=== PATIENT | male | born 1935 | race Caucasian/White ===

== ENCOUNTER 2021-05-11 19:00 | Emergency (ER) | payer MEDICARE, BC ==
[~2021-05-11] VITALS: Ht 190.5 cm; Wt 90.7 kg
[~2021-05-11 19:00] MED LIST: CENTRUM SILVER1 EAC1 PO; COQ-10100 MG PO; COREG25 MG PO; COUMADIN2.5 MG PO; GLUCOSAMINE S1000 M2 PO; LISINOPRIL20 MG PO; LO-DOSE ASPIRIN81 MG PO; TRICOR48 MG PO
[2021-05-11 21:09] LABS: BASOPHILS # (AUTO) 0.1 (0.0-0.1); BASOPHILS % 0.6 % (0.0-1.0); EOSINOPHILS # (AUTO) 0.2 (0.0-0.4); HEMATOCRIT 38.5 % (38.2-49.6); HEMOGLOBIN 12.3 g/dL (14.0-18.0); LYMPHOCYTES # (AUTO) 0.7 (1.0-3.2); MEAN CORPUSCULAR HEMOGLOBIN 28.5 pg (28-32); MEAN CORPUSCULAR HGB CONC 31.9 g/dL (31-35); MEAN CORPUSCULAR VOLUME 89.3 fL (81-99); MONOCYTES % 12.2 % (4.4-11.3); NEUTROPHILS # (AUTO) 6.2 (2.1-6.9); PLATELET COUNT 126 x10e3/uL (140-360); RED BLOOD COUNT 4.31 x10e6/uL (4.3-5.7)
[2021-05-11 21:17] LABS: INR 1.73; PROTHROMBIN TIME 21.6 seconds (11.9-14.5)
[2021-05-11 21:18] LABS: PARTIAL THROMBOPLASTIN TIME 39.2 seconds (23.8-35.5)
[2021-05-11 21:26] LABS: ALBUMIN 4.2 g/dL (3.5-5.0); ALBUMIN/GLOBULIN RATIO 1.3 (0.8-2.0); ANION GAP 15.3 mmol/L (8-16); CALCIUM 9.4 mg/dL (8.4-10.2); CREATININE, SERUM 1.56 mg/dL (0.72-1.25); POTASSIUM 4.3 mmol/L (3.5-5.1)
[2021-05-11] MEDS ORDERED: AFRIN15 ML INH (21:59)
[2021-05-11] MEDS ORDERED: SILVER NITRATE SWABS ONE (22:04)
== END 2021-05-11 22:04 | disposition home or self-care (01) ==
LOC: ER 19:15
DX: R04.0 Epistaxis (principal); I10 Essential (primary) hypertension; E78.00 Pure hypercholesterolemia, unspecified; Z79.82 Long term (current) use of aspirin; Z79.01 Long term (current) use of anticoagulants; Z79.899 Other long term (current) drug therapy; Z86.73 Personal history of transient ischemic attack (TIA), and cerebral infarction without residual deficits
CPT/HCPCS: 36415; 80053; 85025; 85610; 85730; 99282

== ENCOUNTER 2021-05-24 23:02 | Emergency (ER) | payer MEDICARE, BC ==
[~2021-05-24] VITALS: Ht 190.5 cm; Wt 90.7 kg
[~2021-05-24 23:02] MED LIST changes: +AFRIN15 ML INH
[2021-05-24] MEDS ORDERED: OXYMETAZOLINE HCL 0.05% NAS 1 SPRAY BTL ONE ×2 (23:15→23:24)
[2021-05-24 23:58] LABS: BASOPHILS % 0.4 % (0.0-1.0); EOSINOPHILS # (AUTO) 0.2 (0.0-0.4); EOSINOPHILS % 2.5 % (0.0-6.0); HEMATOCRIT 40.5 % (38.2-49.6); HEMOGLOBIN 12.8 g/dL (14.0-18.0); LYMPHOCYTES # (AUTO) 0.6 (1.0-3.2); LYMPHOCYTES % 7.6 % (18.0-39.1); MEAN CORPUSCULAR HEMOGLOBIN 28.4 pg (28-32); MEAN CORPUSCULAR HGB CONC 31.6 g/dL (31-35); MEAN CORPUSCULAR VOLUME 89.8 fL (81-99); MONOCYTES # (AUTO) 0.9 (0.2-0.8); MONOCYTES % 10.3 % (4.4-11.3); NEUTROPHILS # (AUTO) 6.7 (2.1-6.9); NEUTROPHILS % 78.8 % (38.7-80.0); PLATELET COUNT 137 x10e3/uL (140-360); RED BLOOD COUNT 4.51 x10e6/uL (4.3-5.7); RED CELL DISTRIBUTION WIDTH 13.9 % (11.7-14.4)
[2021-05-25 00:05] LABS: INR 1.92; PROTHROMBIN TIME 23.3 seconds (11.9-14.5)
[2021-05-25 00:06] LABS: PARTIAL THROMBOPLASTIN TIME 42.8 seconds (23.8-35.5)
[2021-05-25 00:13] LABS: ANION GAP 16.7 mmol/L (8-16); CALCIUM 9.9 mg/dL (8.4-10.2); CREATININE, SERUM 1.43 mg/dL (0.72-1.25); POTASSIUM 4.7 mmol/L (3.5-5.1)
[2021-05-25] MEDS ORDERED: AUGMENTIN 875-1 EACH PO (17:54)
== END 2021-05-25 01:30 | disposition home or self-care (01) ==
LOC: ER 23:27
DX: R04.0 Epistaxis (principal); Z79.01 Long term (current) use of anticoagulants; I10 Essential (primary) hypertension; I25.2 Old myocardial infarction
CPT/HCPCS: 36415; 80048; 85025; 85610; 85730; 99283

== ENCOUNTER 2021-05-25 17:13 | Emergency (ER) | payer MEDICARE, BC ==
[~2021-05-25] VITALS: Ht 190.5 cm; Wt 90.7 kg
[2021-05-25] MEDS ORDERED: AUGMENTIN 875-1 EACH PO (17:54)
== END 2021-05-25 18:00 | disposition home or self-care (01) ==
LOC: ER 17:28
DX: R04.0 Epistaxis (principal); I10 Essential (primary) hypertension; E78.00 Pure hypercholesterolemia, unspecified; I25.2 Old myocardial infarction; Z95.5 Presence of coronary angioplasty implant and graft; Z86.73 Personal history of transient ischemic attack (TIA), and cerebral infarction without residual deficits
CPT/HCPCS: 99282

== ENCOUNTER 2021-09-11 09:01 | Inpatient (IN) | payer MEDICARE, BC ==
[~2021-09-11] VITALS: Ht 190.5 cm; Wt 90.7 kg
[~2021-09-11 09:01] MED LIST changes: +AUGMENTIN 875-1 EACH PO
[2021-09-11 09:35] LABS: BASOPHILS % 0.6 % (0.0-1.0); EOSINOPHILS # (AUTO) 0.3 (0.0-0.4); EOSINOPHILS % 4.4 % (0.0-6.0); HEMATOCRIT 38.7 % (38.2-49.6); HEMOGLOBIN 12.2 g/dL (14.0-18.0); LYMPHOCYTES # (AUTO) 0.5 (1.0-3.2); LYMPHOCYTES % 7.8 % (18.0-39.1); MEAN CORPUSCULAR HEMOGLOBIN 27.7 pg (28-32); MEAN CORPUSCULAR HGB CONC 31.5 g/dL (31-35); MEAN CORPUSCULAR VOLUME 87.8 fL (81-99); MONOCYTES # (AUTO) 0.6 (0.2-0.8); MONOCYTES % 8.7 % (4.4-11.3); NEUTROPHILS # (AUTO) 5.3 (2.1-6.9); NEUTROPHILS % 78.4 % (38.7-80.0); PLATELET COUNT 118 x10e3/uL (140-360); RED BLOOD COUNT 4.41 x10e6/uL (4.3-5.7); RED CELL DISTRIBUTION WIDTH 14.8 % (11.7-14.4)
[2021-09-11 09:52] LABS: INR 2.05; PROTHROMBIN TIME 24.7 seconds (11.9-14.5)
[2021-09-11 09:53] LABS: PARTIAL THROMBOPLASTIN TIME 42.6 seconds (23.8-35.5)
[2021-09-11 09:55] LABS: ALBUMIN 3.9 g/dL (3.5-5.0); ALBUMIN/GLOBULIN RATIO 1.1 (0.8-2.0); ANION GAP 13.3 mmol/L (8-16); CALCIUM 8.7 mg/dL (8.4-10.2); CREATININE, SERUM 1.21 mg/dL (0.72-1.25); POTASSIUM 4.3 mmol/L (3.5-5.1)
[2021-09-11 10:02] LABS: CREATINE KINASE MB 3.9 ng/mL (0-5.0)
[2021-09-11] MEDS ORDERED: FUROSEMIDE INJ 10 MG/ML 4 ML VIAL IV ONE (10:20)
[2021-09-11] MEDS ORDERED: ANACIN 400-321 EACH PO (10:20)
[2021-09-11] MEDS ORDERED: NITROGLYCERIN 0.4 MG SUBL SL PRN (10:30)
[2021-09-11] MEDS ORDERED: LEVALBUTEROL HCL SOLN NEBU 0.63 MG/3 ML NEB INH PRN (10:30)
[2021-09-11] MEDS ORDERED: DOCUSATE SODIUM 100 MG CAP PO PRN (10:30)
[2021-09-11] MEDS ORDERED: ONDANSETRON HCL INJ 2MG/ML 2ML 2 MG/ML VIAL IV PRN (10:30)
[2021-09-11] MEDS: FAMOTIDINE 20 MG/2 ML VIAL IV SCH ×2 (11:07→21:46)
[2021-09-11 12:20] VITALS: BP 150/77
[2021-09-11 15:07] VITALS: BP 136/56
[2021-09-11] MEDS: WARFARIN SOD 2.5 MG TAB PO SCH ×2 (16:59→17:00)
[2021-09-11] MEDS ORDERED: ENOXAPARIN SOD INJ 40 MG/0.4 ML SYR SC SCH (17:00)
[2021-09-11 18:18] LABS: CREATINE KINASE MB 4.2 ng/mL (0-5.0)
[2021-09-11 20:00] VITALS: BP 133/69
[2021-09-11 21:09] VITALS: BP 133/69
[2021-09-12] VITALS (8 sets, daily range): BP systolic 111–140; BP diastolic 54–65
[2021-09-12 05:29] LABS: BASOPHILS # (AUTO) 0.1 (0.0-0.1); BASOPHILS % 0.7 % (0.0-1.0); EOSINOPHILS # (AUTO) 0.3 (0.0-0.4); EOSINOPHILS % 4.4 % (0.0-6.0); HEMATOCRIT 35.7 % (38.2-49.6); HEMOGLOBIN 11.4 g/dL (14.0-18.0); LYMPHOCYTES # (AUTO) 0.7 (1.0-3.2); LYMPHOCYTES % 10.6 % (18.0-39.1); MEAN CORPUSCULAR HEMOGLOBIN 27.9 pg (28-32); MEAN CORPUSCULAR HGB CONC 31.9 g/dL (31-35); MEAN CORPUSCULAR VOLUME 87.5 fL (81-99); MONOCYTES # (AUTO) 0.9 (0.2-0.8); MONOCYTES % 13.6 % (4.4-11.3); NEUTROPHILS # (AUTO) 4.8 (2.1-6.9); NEUTROPHILS % 70.4 % (38.7-80.0); PLATELET COUNT 111 x10e3/uL (140-360); RED BLOOD COUNT 4.08 x10e6/uL (4.3-5.7); RED CELL DISTRIBUTION WIDTH 14.7 % (11.7-14.4)
[2021-09-12 06:05] LABS: CREATINE KINASE MB 2.6 ng/mL (0-5.0)
[2021-09-12 06:37] LABS: ALBUMIN 3.5 g/dL (3.5-5.0); ALBUMIN/GLOBULIN RATIO 1.1 (0.8-2.0); ANION GAP 15.1 mmol/L (8-16); CALCIUM 8.4 mg/dL (8.4-10.2); CREATININE, SERUM 1.33 mg/dL (0.72-1.25); POTASSIUM 4.1 mmol/L (3.5-5.1)
[2021-09-12] MEDS ORDERED: CARVEDILOL 12.5 MG TAB PO SCH ×2 (09:00→17:00)
[2021-09-12] MEDS: FUROSEMIDE INJ 10 MG/ML 4 ML VIAL IV SCH (09:25)
[2021-09-12] MEDS: ASPIRIN 81 MG ENTERIC COATED PO SCH (09:25)
[2021-09-12] MEDS: FAMOTIDINE 20 MG/2 ML VIAL IV SCH ×2 (09:43→21:14)
[2021-09-12] MEDS: WARFARIN SOD 2.5 MG TAB PO SCH (17:00)
[2021-09-12] MEDS: VALSARTAN/SACUBITRIL 24MG/26MG 1 EA TAB PO SCH (18:08)
[2021-09-12 18:17] LABS: INR 1.93; PROTHROMBIN TIME 23.6 seconds (11.9-14.5)
[2021-09-13] VITALS (8 sets, daily range): BP systolic 112–146; BP diastolic 53–76
[2021-09-13 05:51] LABS: INR 1.9; PROTHROMBIN TIME 23.3 seconds (11.9-14.5)
[2021-09-13] MEDS: VALSARTAN/SACUBITRIL 24MG/26MG 1 EA TAB PO SCH ×2 (09:18→17:00)
[2021-09-13] MEDS: ASPIRIN 81 MG ENTERIC COATED PO SCH (09:18)
[2021-09-13] MEDS: FUROSEMIDE INJ 10 MG/ML 4 ML VIAL IV SCH (09:18)
[2021-09-13] MEDS ORDERED: ONDANSETRON HCL 4 MG ORAL DISINTEGRATING TAB PO PRN (10:30)
[2021-09-13] MEDS: FAMOTIDINE 20 MG/2 ML VIAL IV SCH ×2 (11:33→22:00)
[2021-09-13] MEDS ORDERED: GENTAMICIN 120MG/NS 100ML 200 ML IV STA (14:05)
[2021-09-13] MEDS ORDERED: LIDOCAINE HCL 2% LOCAL 20 ML VIAL ONE (14:34)
[2021-09-13] MEDS ORDERED: HEPARIN SOD/SOD CHLORIDE 1,000 ML ONE (14:34)
[2021-09-13] MEDS ORDERED: SODIUM CHLORIDE 0.9% 1000ML 1,000 ML ONE ×2 (16:18→16:32)
[2021-09-13] MEDS ORDERED: MIDAZOLAM HCL 2 MG/2 ML VIAL ONE ×2 (16:39→17:27)
[2021-09-13] MEDS ORDERED: DIPHENHYDRAMINE HCL INJ 50 MG/ML VIAL ONE (16:39)
[2021-09-13] MEDS ORDERED: FENTANYL CITRATE/PF 100MCG/2 ML INJ ONE (16:40)
[2021-09-13] MEDS ORDERED: Vancomycin IV 1 GM VIAL ONE ×2 (17:07→17:11)
[2021-09-13] MEDS ORDERED: SODIUM CHLORIDE 0.9% 250ML 250 ML ONE (17:07)
[2021-09-14] MEDS ORDERED: ACETAMINOPHEN/CODEINE 300MG - 30MG TAB PO PRN (01:45)
[2021-09-14 05:12] VITALS: BP 131/82
[2021-09-14] MEDS ORDERED: COREG25 MG PO (06:37)
[2021-09-14] MEDS ORDERED: FUROSEMIDE40 MG PO (06:37)
[2021-09-14] MEDS ORDERED: Valsartan/Sacubitril 24MG/26MG PO (06:37)
[2021-09-14 07:02] VITALS: BP 132/78
[2021-09-14 08:49] VITALS: BP 132/78
[2021-09-14] MEDS: FUROSEMIDE INJ 10 MG/ML 4 ML VIAL IV SCH (08:50)
[2021-09-14] MEDS: VALSARTAN/SACUBITRIL 24MG/26MG 1 EA TAB PO SCH (08:51)
[2021-09-14] MEDS: ASPIRIN 81 MG ENTERIC COATED PO SCH (08:52)
[2021-09-14] MEDS: FAMOTIDINE 20 MG/2 ML VIAL IV SCH (08:57)
[2021-09-14 11:00] VITALS: BP 118/66
[2021-09-14] MEDS ORDERED: FAMOTIDINE 20 MG TAB PO SCH (21:00)
[2021-09-15] MEDS ORDERED: FUROSEMIDE 40 MG TAB PO SCH (09:00)
== END 2021-09-14 12:58 | disposition home or self-care (01) | DRG 226 ==
LOC: ER 09:15 → ERHOLD 10:20 → MED/SURG 12:06 → OBSVTOIN 09-12 12:00
PROVIDERS: ADMIT Internal Medicine; ATTEND Internal Medicine
PROC: 0JH609Z Insertion of Cardiac Resynchronization Defibrillator Pulse Generator into Chest Subcutaneous Tissue and Fascia, Open Approach (ICD-10-PCS; principal; 2021-09-13)
PROC: 02HL3KZ Insertion of Defibrillator Lead into Left Ventricle, Percutaneous Approach (ICD-10-PCS; 2021-09-13)
PROC: 02HK3KZ Insertion of Defibrillator Lead into Right Ventricle, Percutaneous Approach (ICD-10-PCS; 2021-09-13)
DX: I11.0 Hypertensive heart disease with heart failure (principal); I50.23 Acute on chronic systolic (congestive) heart failure; N17.9 Acute kidney failure, unspecified; I48.19 Other persistent atrial fibrillation; D69.6 Thrombocytopenia, unspecified; Z79.01 Long term (current) use of anticoagulants; Z95.1 Presence of aortocoronary bypass graft; E78.00 Pure hypercholesterolemia, unspecified; I44.7 Left bundle-branch block, unspecified; I25.5 Ischemic cardiomyopathy; I25.2 Old myocardial infarction; Z86.73 Personal history of transient ischemic attack (TIA), and cerebral infarction without residual deficits; Z95.5 Presence of coronary angioplasty implant and graft; Z90.49 Acquired absence of other specified parts of digestive tract; Z87.891 Personal history of nicotine dependence; Z20.822 Contact with and (suspected) exposure to COVID-19
CPT/HCPCS: 33225; 33249; 36415; 71045; 80053; 80061; 82550; 82553; 83735; 83880; 84484; 85025; 85610; 85730; 93005; 93306; 94799; 99152; 99153; 99284; C1777; C1882; C1900; G0378; J1200; J1580; J1940; J2001; J2250; J3010; J3370; J7030; J7050; U0002